=== PATIENT | female | born 1985 | race Hispanic/Latino ===

== ENCOUNTER 2017-01-30 18:09 | Inpatient (IN) | payer OTHER ==
[~2017-01-30] VITALS: Ht 152.4 cm; Wt 55.6 kg
[2017-01-30 19:24] LABS: HEMATOCRIT 41.3 % (36.0-46.0); MCH 29.6 PG (29.0-34.0); MCHC 34.9 G/DL (30.0-36.0); MCV 84.8 FL (83-99); MEAN PLAT.VOLUME 9.4 uM^3 (9.5-12.4); PLATELET COUNT 366 K/uL (156-360); RBC DIS.WIDTH-CV 11.9 % (11.8-14.6); RBC DIS.WIDTH-SD 36.3 % (39-53); RED BLOOD COUNT 4.87 M/uL (3.80-5.20); WHITE BLOOD COUNT 12.1 K/uL (4.1-10.2)
[2017-01-30 19:35] LABS: CHLORIDE 107 mEq/L (99-109); POTASSIUM 3.4 mEq/L (3.7-5.4); SODIUM 142 mEq/L (136-147)
[2017-01-30 19:37] LABS: GLUCOSE 84 mg/dL (70-99)
[2017-01-30 19:38] LABS: ANION GAP 13 MEQ/L (2-14)
[2017-01-30 19:40] LABS: GFR ESTIMATE (CALCULATED) > 59 mL/min/
[2017-01-30 19:41] LABS: UREA NITROGEN (BUN) 6 mg/dL (9-23)
[2017-01-30 19:44] LABS: TROP-I INTERPRETATION NEGATIVE; TROPONIN-I 0.03 ng/mL (0.0-0.30)
[2017-01-30 19:48] LABS: QUANTITATIVE HCG < 4.0 MIU/ML
[2017-01-30 20:44] LABS: D-DIMER ELISA < 0.15 mg/L FEU (< 0.57)
[2017-01-30 21:51] LABS: TROP-I INTERPRETATION NEGATIVE; TROPONIN-I < 0.01 ng/mL (0.0-0.30)
[2017-01-30] MEDS ORDERED: CLONAZEPAM1 MG PO (23:52)
[2017-01-30] MEDS ORDERED: ALBUTEROL2.5 MG/3 M IH (23:52)
[2017-01-30] MEDS ORDERED: QUETIAPINE FUM100 MG PO (23:52)
[2017-01-30] MEDS ORDERED: MIRALAX255 GM PO (23:53)
[2017-01-30] MEDS ORDERED: BUPROPION HCL150 M2 PO (23:53)
[2017-01-30] MEDS ORDERED: CETIRIZINE HCL10 M2 PO (23:54)
[2017-01-31 04:01] VITALS: BP 133/78
[2017-01-31 08:04] VITALS: BP 138/92
[2017-01-31 11:14] VITALS: BP 124/68
[2017-01-31 15:22] VITALS: BP 122/68
[2017-02-01 04:30] VITALS: BP 131/84
[2017-02-01 09:03] LABS: HEMATOCRIT 41.1 % (36.0-46.0); MCH 29.3 PG (29.0-34.0); MCHC 33.3 G/DL (30.0-36.0); MCV 87.8 FL (83-99); MEAN PLAT.VOLUME 9.7 uM^3 (9.5-12.4); PLATELET COUNT 393 K/uL (156-360); RBC DIS.WIDTH-CV 12.5 % (11.8-14.6); RBC DIS.WIDTH-SD 39.8 % (39-53); RED BLOOD COUNT 4.68 M/uL (3.80-5.20)
[2017-02-01 09:04] LABS: WHITE BLOOD COUNT 18.4 K/uL (4.1-10.2)
[2017-02-01 09:06] LABS: ANION GAP 9 MEQ/L (2-14); CHLORIDE 106 MEQ/L (99-109); GFR ESTIMATE (CALCULATED) > 59 mL/min/; SAMPLE HEMOLYSIS CHECK 0; SAMPLE ICTERIC CHECK 0; SAMPLE LIPEMIA CHECK 0; SODIUM 140 MEQ/L (136-147); UREA NITROGEN (BUN) 15 mg/dL (9-23)
[2017-02-01 09:12] LABS: GLUCOSE 109 mg/dL (70-99); POTASSIUM 4.3 MEQ/L (3.7-5.4)
[2017-02-01 09:20] VITALS: BP 139/97
[2017-02-01 11:57] VITALS: BP 120/66
[2017-02-01 15:28] VITALS: BP 133/77
[2017-02-01 20:00] VITALS: BP 122/77
[2017-02-01 22:31] VITALS: BP 134/80
[2017-02-02 03:51] VITALS: BP 134/77
[2017-02-02 08:29] LABS: CHLORIDE 107 mEq/L (99-109); POTASSIUM 4.5 mEq/L (3.7-5.4); SODIUM 139 mEq/L (136-147)
[2017-02-02 08:31] LABS: GLUCOSE 107 mg/dL (70-99)
[2017-02-02 08:32] LABS: ANION GAP 13 MEQ/L (2-14)
[2017-02-02 08:35] LABS: GFR ESTIMATE (CALCULATED) > 59 mL/min/
[2017-02-02 08:36] LABS: UREA NITROGEN (BUN) 16 mg/dL (9-23)
[2017-02-02 08:54] VITALS: BP 139/94
[2017-02-02 16:32] VITALS: BP 152/72
[2017-02-02 23:32] VITALS: BP 119/73
[2017-02-03 04:02] VITALS: BP 162/84
[2017-02-03 07:49] VITALS: BP 166/85
[2017-02-03 08:27] LABS: HEMATOCRIT 42.5 % (36.0-46.0); MCH 30.1 PG (29.0-34.0); MCHC 34.4 G/DL (30.0-36.0); MCV 87.6 FL (83-99); MEAN PLAT.VOLUME 9.8 uM^3 (9.5-12.4); PLATELET COUNT 400 K/uL (156-360); RBC DIS.WIDTH-CV 12.6 % (11.8-14.6); RBC DIS.WIDTH-SD 39.9 % (39-53); RED BLOOD COUNT 4.85 M/uL (3.80-5.20)
[2017-02-03 09:04] LABS: ANION GAP 10 MEQ/L (2-14); CHLORIDE 105 MEQ/L (99-109); GFR ESTIMATE (CALCULATED) > 59 mL/min/; SAMPLE HEMOLYSIS CHECK 0; SAMPLE ICTERIC CHECK 0; SAMPLE LIPEMIA CHECK 0; SODIUM 140 MEQ/L (136-147); UREA NITROGEN (BUN) 17 mg/dL (9-23)
[2017-02-03 09:08] LABS: GLUCOSE 80 mg/dL (70-99)
[2017-02-03] MEDS ORDERED: NICOTINE PATCH1 EACH TD (09:56)
[2017-02-03] MEDS ORDERED: BUTALB-APAP-CA1 EACH PO (09:57)
[2017-02-03] MEDS ORDERED: MEDROL DOSEPAK4 MG PO (09:57)
== END 2017-02-03 10:15 | disposition home or self-care (01) | DRG 103 ==
LOC: EME 18:09 → EDOF 01-31 01:40 → 5WEST 01-31 03:39 → 2EAST 02-01 22:11
PROVIDERS: Hospitalist; Internal Medicine; Physician Assistant
DX: G43.919 Migraine, unspecified, intractable, without status migrainosus (principal); J45.901 Unspecified asthma with (acute) exacerbation; J01.00 Acute maxillary sinusitis, unspecified; F32.9 Major depressive disorder, single episode, unspecified; F41.9 Anxiety disorder, unspecified; R45.851 Suicidal ideations; Z76.5 Malingerer [conscious simulation]
CPT/HCPCS: 70450; 71010; 80048; 84484; 84702; 85027; 85379; 93005; 94640; 94640 76; 94644; 99202; 99281; 99285; J1170; J1200; J1650; J1885; J2550; J2930; J3010; J3475; J7030; J7512